=== PATIENT | female | born 1970 | race American Indian/Alaskan Native ===

== ENCOUNTER 2021-01-20 07:32 | Day surgery (SDC) | payer BC ==
[2021-01-18 13:31] LABS: Hematocrit 37.5 % (30.3-42.9); Hemoglobin 12.3 gm/dl (10.1-14.3); Mean Corpuscular HGB Conc 33 % (30-34); Mean Corpuscular Volume 96 fl (79-97)
[2021-01-18 13:42] LABS: Blood Urea Nitrogen 12 mg/dL (7-17); Calcium 9.6 mg/dL (8.4-10.2); Hemolysis Index 71
[2021-01-18 13:43] LABS: BUN/Creatinine Ratio 24
[2021-01-18 14:57] LABS: Platelet Count 316 K/mm3 (140-440)
[2021-01-20] MEDS ORDERED: LACTATED RINGERS 1,000 ML IV SCH (08:00)
[2021-01-20] MEDS ORDERED: ceFAZolin/STERILE WATER 2 GM/20 ML SYRINGE IV NR (08:00)
[2021-01-20] MEDS ORDERED: MIDAZOLAM 2 MG/2 ML INJ IV NR (08:23)
[2021-01-20] MEDS ORDERED: HYDROmorphone 1 MG/1 ML INJ IV PRN ×2 (08:24)
[2021-01-20] MEDS ORDERED: ONDANSETRON 4 MG/2 ML INJ IV PRN (08:24)
--- NOTE | 2021-01-20 08:25 | Anesthesia Day of Surgery ---
Anesthesia Day of Surgery - Day of Surgery Patient Examined: Yes Patient H&P Reviewed: Yes Patient is NPO: Yes
--- NOTE | 2021-01-20 08:26 | Anesthesia Consultation ---
Anesthesia Consult and Med Hx Date of service: 01/20/21 - Airway Anesthetic Teeth Evaluation: Caps ROM Head & Neck: Adequate Mental/Hyoid Distance: Adequate Mallampati Class: Class II Intubation Access Assessment: Good - Pre-Operative Health Status ASA Pre-Surgery Classification: ASA2 Proposed Anesthetic Plan: General - Pulmonary Hx Asthma: Yes (As a child) Hx Respiratory Symptoms: No (+2FS) - Cardiovascular System Hx Hypertension: No - Central Nervous System Hx Psychiatric Problems: No - Gastrointestinal Hx Gastroesophageal Reflux Disease: No - Endocrine Hx Renal Disease: Yes (Stones) - Hematic Hx Sickle Cell Disease: No - Other Systems Hx Alcohol Use: Yes (Occas) Hx Cancer: No Hx Obesity: Yes - Additional Comments Anesthesia Medical History Comments: Has symptomatic uterine fibroids
[2021-01-20] MEDS ORDERED: fentaNYL 100 MCG/2 ML INJ ONE (09:00)
[2021-01-20] MEDS ORDERED: LIDOCAINE MPF (2%) 20 MG/1 ML VIAL 5 ML ONE (09:00)
[2021-01-20] MEDS ORDERED: propofoL 200 MG/20 ML VIAL IV ONE (09:00)
[2021-01-20] MEDS ORDERED: WATER FOR IRRIG STERILE 2000 ML IR ONE (09:27)
[2021-01-20] MEDS ORDERED: WATER FOR IRRIG STERILE 1,000 ML BOTTLE IR ONE (09:34)
--- NOTE | 2021-01-20 10:07 | Short Stay Summary ---
Short Stay Documentation Date of service: 01/20/21 - History H&P: obtained from office - Allergies and Medications Current Medications: Allergies No Known Allergies Allergy (Unverified 01/17/21 17:31) Home Medications Medication Instructions Recorded Confirmed Last Taken Type Acetaminophen/Codeine [Tylenol 1 tab PO Q6H PRN 01/17/21 01/17/21 Unknown History /Codeine # 3 tab] Ibuprofen [Motrin] 800 mg PO Q8HR PRN 01/17/21 01/17/21 01/19/21 History Zolpidem Tartrate 10 mg PO HS 01/17/21 01/17/21 01/19/21 History Active Medications Cefazolin Sodium (Cefazolin/Sterile Water 2 Gm/20 Ml Syringe) 2 gm IV PREOP NR Stop: 01/20/21 20:00 Hydromorphone HCl (Hydromorphone 1 Mg/1 Ml Inj) 0.25 mg IV Q10MIN PRN PRN Reason: Pain, Moderate (4-6) Stop: 01/20/21 23:00 Hydromorphone HCl (Hydromorphone 1 Mg/1 Ml Inj) 0.5 mg IV Q10MIN PRN PRN Reason: Pain , Severe (7-10) Stop: 01/20/21 23:59 Lactated Ringer's (Lactated Ringers) 1,000 mls @ 100 mls/hr IV DIRECT MITA Last Admin: 01/20/21 08:45 Dose: 100 mls/hr Documented by: Midazolam HCl (Midazolam 2 Mg/2 Ml Inj) 2 mg IV ONCE NR Stop: 01/20/21 12:00 Last Admin: 01/20/21 08:47 Dose: 2 mg Documented by: Ondansetron HCl (Ondansetron 4 Mg/2 Ml Inj) 4 mg IV ONCE PRN PRN Reason: Nausea And Vomiting Stop: 01/20/21 20:00 - Brief post op/procedure progress note Date of procedure: 01/20/21 Pre-op diagnosis: rt renal stone Post-op diagnosis: same Procedure: cysto, rt stent, ESWL Anesthesia: CHANTE Surgeon: ROSITA DEWEY Estimated blood loss: none Pathology: none Condition: stable - Hospital course Hospital course: macrobid, norco, post op info on chart - Disposition Condition at discharge: Stable Disposition: DC-01 TO HOME OR SELFCARE Short Stay Discharge Plan Follow up with: SHONNA WARD MD [Primary Care Provider] - 7 Days
[2021-01-20] MEDS ORDERED: HYDROmorphone 1 MG/1 ML INJ ONE (10:25)
[2021-01-20] MEDS ORDERED: KETOROLAC 30 MG/1 ML INJ ONE (10:25)
[2021-01-20] MEDS ORDERED: ONDANSETRON 4 MG/2 ML INJ ONE (10:26)
[2021-01-20] MEDS ORDERED: KETOROLAC 30 MG/1 ML INJ IV PRN (11:00)
--- NOTE | 2021-01-20 11:06 | Operative Report ---
DATE OF SURGERY: 01/20/2021 PREOPERATIVE DIAGNOSIS: Right ureteral stone, 1 cm. POSTOPERATIVE DIAGNOSIS: Right ureteral stone, 1 cm. PROCEDURE PERFORMED: Cystoscopy, right double-J stent (6-Kyrgyz 24 cm with a short internal string), right extracorporal shockwave lithotripsy. SURGEON: Didier Thrasher MD ANESTHESIA: General. ESTIMATED BLOOD LOSS: Minimal. FLUIDS: Crystalloid. COMPLICATIONS: No complications. INDICATIONS: This patient is a 50-year-old female seen in the office with right flank pain. CT abdomen and pelvis revealed a 1 cm stone. Discussed options and the patient agreed to proceed with surgical intervention. She is also undergoing a hysterectomy in the near future. DESCRIPTION OF PROCEDURE: The patient was taken to the operative suite, placed in a supine position. After adequate general anesthesia, placed in a dorsal lithotomy position, prepped and draped in a sterile fashion. Pancystourethroscopy was performed with a 22-Kyrgyz Storz cystoscope. No bladder pathology. A 0.035 Glidewire was placed. A 6-Kyrgyz 24 cm stent with a short internal string was placed without difficulty. The patient was then placed in a supine position. His right renal stone was localized in 2 planes using fluoroscopy. Extracorporal shock wave lithotripsy was administered with a maximum kV of 8 and 2500 shocks. 5-minute renal pause after 200 shocks was performed without difficulty. There was some fragmentation of the stone. She was extubated and taken to recovery room. She will go home on Macrobid and [place]. TID: [id number] RECEIPT: [id number] SARAI/YUDELKA
[2021-01-20 11:31] VITALS: BP 134/68
--- NOTE | 2021-01-20 17:16 | Post Anesthesia Evaluation ---
- Post Anesthesia Evaluation Patient Participated: Yes Airway Patent: Yes Stable Respiratory Function: Yes Nausea/Vomiting: No Temp > 96.8F: Yes Pain Manageable: Yes Adequeate Hydration: Yes Anesthesia Complications: No Block Receding Appropriately: Not Applicable Patient on Ventilator: No
== END 2021-01-20 11:30 | disposition home or self-care (01) ==
LOC: OR 07:32
PROVIDERS: ATTEND Urology
DX: N20.1 Calculus of ureter (principal); J45.909 Unspecified asthma, uncomplicated; E66.9 Obesity, unspecified; Z20.822 Contact with and (suspected) exposure to COVID-19; M19.90 Unspecified osteoarthritis, unspecified site; Z72.89 Other problems related to lifestyle; Z79.899 Other long term (current) drug therapy; Z98.891 History of uterine scar from previous surgery; Z98.890 Other specified postprocedural states; Z68.41 Body mass index [BMI] 40.0-44.9, adult
CPT/HCPCS: 36415; 50590; 52332; 80048; 85027; A4217; C1758; C2617; J0690; J1170; J1885; J2250; J2405; J2704; J3010; J7120; U0003

== ENCOUNTER 2021-03-31 10:54 | Day surgery (SDC) | payer BC ==
[2021-03-31] MEDS ORDERED: MORPHINE 2 MG/1 ML INJ IV ONE (12:38)
[2021-03-31] MEDS ORDERED: MORPHINE 2 MG/1 ML INJ ONE (12:40)
[2021-03-31] MEDS ORDERED: SODIUM CHLORIDE 0.9% 500 ML 500 ML IV SCH (13:00)
--- NOTE | 2021-03-31 13:19 | Cat Scan Report ---
CT ABDOMEN AND PELVIS WITHOUT CONTRAST INDICATION / CLINICAL INFORMATION: nephrolithiasis/pain. TECHNIQUE: Axial CT images were obtained through the abdomen and pelvis without IV contrast. All CT scans at this location are performed using CT dose reduction for ALARA by means of automated exposure control. COMPARISON: None available. FINDINGS: LOWER CHEST: No significant abnormality LIVER: No significant abnormality GALLBLADDER/BILIARY TREE: No significant abnormality PANCREAS: No significant abnormality SPLEEN: No significant abnormality ADRENALS: No significant abnormality KIDNEYS / URETER/ BLADDER: Right ureteral stent is appropriately positioned. Calcifications are seen along the distal aspect of the stent in the bladder. Additional 5 mm bladder stone is present adjacen t to the stent. 1.3 cm stone is present within the right renal pelvis with 3 additional tiny stones i n the lower pole right renal calyx. There is urothelial thickening of the right renal collecting syst em. No significant right hydronephrosis. Left kidney and ureter are unremarkable. No bladder wall thi ckening or perivesicular stranding. UTERUS: Uterus is atrophic or absent. No suspicious adnexal mass. STOMACH / BOWEL: No significant abnormality. The appendix is normal in caliber. LYMPH NODES: No significant adenopathy. VASCULATURE: No significant abnormality. OTHER: No free air, free fluid, or focal fluid collection is identified. SKELETAL SYSTEM: No acute osseous findings. Marked asymmetric right hip osteoarthritis. Mild scattere d degenerative changes of the spine. IMPRESSION: 1. Right nephrolithiasis, to include 1.3 cm renal pelvis stone. Satisfactory position of right ureter al stent with calcification along the distal stent in the bladder with adjacent 5 mm bladder stone. A symmetric urothelial thickening of the right renal collecting system/ureter without significant hydro nephrosis, which may be related to presence of stent, though recommend clinical correlation to exclud e infection. 2. Otherwise, no acute abnormality of the abdomen or pelvis. 3. Other chronic and incidental findings as above. Signer Name: Dougie Tenorio MD Signed: 03/31/2021 1:15 PM Workstation Name: [id number]
[2021-03-31] MEDS ORDERED: fentaNYL 100 MCG/2 ML INJ ONE (15:02)
[2021-03-31] MEDS ORDERED: MIDAZOLAM 2 MG/2 ML INJ ONE ×2 (15:02→16:06)
[2021-03-31] MEDS ORDERED: SODIUM CHLORIDE IRRI 500 ML 500 ML IR ONE (15:03)
[2021-03-31] MEDS ORDERED: LIDOCAINE (2%) 20 MG/1 ML VIAL 20 ML MDV INFILTRATI ONE (15:03)
--- NOTE | 2021-03-31 16:19 | Short Stay Summary ---
Short Stay Documentation Date of service: 03/31/21 - History Principal diagnosis: Right nephrolithiasis Past Medical History: other (Right nephrolithiasis) Past Surgical History: Other (Percutaneous lithotripsy, placement of a right ureteral stent) Social history: no significant social history - Allergies and Medications Current Medications: Allergies No Known Allergies Allergy (Verified 03/21/21 09:48) Home Medications Medication Instructions Recorded Confirmed Last Taken Type HYDROmorphone [Dilaudid] 2 mg PO Q4HR 03/23/21 03/31/21 03/29/21 History 2 mg Active Medications Sodium Chloride (Nacl 0.9% 500 Ml) 500 mls @ 50 mls/hr IV DIRECT MITA Last Admin: 03/31/21 13:24 Dose: 50 mls/hr Documented by: - Physical exam General appearance: no acute distress Integumentary: no rash HEENT: Atraumatic Lungs: Normal air movement Breasts: deferred Gastrointestinal: normal Female Genitourinary: deferred Rectal Exam: deferred Neurological: Normal speech, Normal tone - Brief post op/procedure progress note Date of procedure: 03/31/21 Pre-op diagnosis: Right nephrolithiasis Post-op diagnosis: same Procedure: Ultrasound and fluoroscopic guided placement of a right nephroureteral tube for planned laser lithotripsy Anesthesia: local Surgeon: BECKA ROBB Estimated blood loss: minimal Pathology: none Condition: stable - Disposition Condition at discharge: Good Disposition: 01 HOME / SELF CARE / HOMELESS Short Stay Discharge Plan Activity: advance as tolerated Weight Bearing Status: Weight Bear as Tolerated Diet: regular Wound: keep clean and dry, per your surgeon's advice (Keep dressing intact until surgery with Dr. Thrasher) Follow up with: SHONNA WARD MD [Primary Care Provider] - 7 Days
[2021-03-31 17:17] VITALS: BP 130/78
--- NOTE | 2021-04-06 15:45 | Operative Report ---
Operative Report Operative Report: Exam: Ultrasound and fluoroscopic guided placement of nephroureteral stent Clinical indication: Patient with right nephrolithiasis requiring stent placement for percutaneous access for laser lithotripsy Date: 03/31/2021 Procedure: Following an explanation of the risks, benefits and alternatives; written informed consent was obtained. The patient was brought to the angiographic suite and placed in prone position on the examination table. Initial ultrasound evaluation of the back demonstrated mild right hydronephrosis. The patient's right back and flank were prepped and draped in the usual sterile fashion. 1% lidocaine was used for anesthesia. Under ultrasound guidance, a 15 cm 21-gauge needle was advanced into a posterior middle calyx. A 0.018 guidewire was advanced through the needle into the proximal ureter. The needle was removed and the inner portion of an AccuStick transition dilator placed over the guidewire and advanced centrally. The trocar and guidewire were removed and contrast injected to document appropriate positioning. The guidewire was reinserted and the AccuStick transition dilator reassembled and advanced over the guidewire. The trocar and 018 guidewire were removed and a 0.035 guidewire advanced through the transition dilator to the bladder. The transition dilator was removed and a 5 Barbadian vertebral catheter advanced over the guidewire to the bladder. Contrast was injected which demonstrates appropriate positioning within the bladder. The vertebral catheter was exchanged over a guidewire for a pigtail catheter which was advanced and positioned with the pigtail in the bladder. The catheter was securely fastened to the skin surface using 2-0 Ethilon suture and a sterile dressing applied. The patient tolerated the procedure well. There were no immediate postprocedural complications. Conscious sedation was performed under the guidance of radiologic nursing. Continuous cardiopulmonary monitoring was utilized. Impression: Ultrasound and fluoroscopic placement of nephroureteral stent.
== END 2021-03-31 17:40 | disposition home or self-care (01) ==
LOC: CATHLABREC 10:54
PROVIDERS: ATTEND Radiology Diagnostic Radiology
DX: N20.0 Calculus of kidney (principal); M16.11 Unilateral primary osteoarthritis, right hip; J45.909 Unspecified asthma, uncomplicated; E66.9 Obesity, unspecified; M19.90 Unspecified osteoarthritis, unspecified site; Z79.899 Other long term (current) drug therapy; Z98.890 Other specified postprocedural states
CPT/HCPCS: 50433; 74176; C1769; J1956; J2250; J2270; J3010; J7040

== ENCOUNTER 2021-04-04 06:22 | Observation (INO) | payer BC ==
[2021-03-23 11:48] LABS: Hematocrit 37.8 % (30.3-42.9); Hemoglobin 12.6 gm/dl (10.1-14.3); Mean Corpuscular HGB Conc 33 % (30-34); Mean Corpuscular Volume 94 fl (79-97); Platelet Count 355 K/mm3 (140-440); Red Blood Count 4.03 M/mm3 (3.65-5.03); Red Cell Distribution Width 13.9 % (13.2-15.2)
[2021-03-23 12:14] LABS: INR 0.96 (0.87-1.13)
[2021-03-23 12:15] LABS: Partial Thromboplastin Time 27.1 Sec. (24.2-36.6)
[2021-03-23 12:20] LABS: Alanine Aminotransferase 25 units/L (7-56); Albumin 4.1 g/dL (3.9-5); Blood Urea Nitrogen 10 mg/dL (7-17); Calcium 9.5 mg/dL (8.4-10.2); Hemolysis Index 17
[2021-03-23 12:35] LABS: BUN/Creatinine Ratio 17
--- NOTE | 2021-03-23 14:20 | Anesthesia Consultation ---
Anesthesia Consult and Med Hx Date of service: 04/04/21 - Airway Anesthetic Teeth Evaluation: Good ROM Head & Neck: Adequate Mental/Hyoid Distance: Adequate Mallampati Class: Class III Intubation Access Assessment: Possibly Difficult - Pulmonary Exam CTA: Yes - Cardiac Exam Cardiac Exam: RRR - Pre-Operative Health Status ASA Pre-Surgery Classification: ASA3 Proposed Anesthetic Plan: General - Pulmonary Hx Smoking: No Hx Asthma: Yes (childhood asthma; no recent inhaler use) Hx Respiratory Symptoms: No Hx Sleep Apnea: No (JANI PRE SCREEN LOW RISK) - Cardiovascular System Hx Hypertension: No Hx Heart Attack/AMI: No (>4 mets functional capacity) Hx Percutaneous Transluminal Coronary Angioplasty (PTCA): No - Central Nervous System CVA: No - Endocrine Hx Renal Disease: No Hx Liver Disease: No Hx Insulin Dependent Diabetes: No Hx Non-Insulin Dependent Diabetes: No Hx Thyroid Disease: No - Other Systems Hx Obesity: Yes (BMI 43) - Additional Comments Anesthesia Medical History Comments: Hx PONV for which scop patch worked well. Currently taking PO dilaudid for pain associated with renal stones.
[~2021-04-04 06:22] MED LIST: ACETAMINOPHEN 500 MG TAB PO SCH; GABAPENTIN 300 MG CAP PO NR; MIDAZOLAM 2 MG/2 ML INJ IV NR; SCOPOLAMINE TRANSDERMAL PATCH 72 HR TD NR
[2021-04-04] MEDS ORDERED: BACTERIOSTATIC SODIUM CHLORIDE 0.9% 30 ML VIAL INFILTRATI ONE (06:27)
[2021-04-04] MEDS ORDERED: HYDROmorphone 1 MG/1 ML INJ IV NR (06:57)
--- NOTE | 2021-04-04 06:57 | Anesthesia Day of Surgery ---
Anesthesia Day of Surgery - Day of Surgery Patient Examined: Yes Patient H&P Reviewed: Yes Patient is NPO: Yes
[2021-04-04] MEDS: LACTATED RINGERS 1,000 ML IV SCH ×2 (07:15→16:43)
[2021-04-04] MEDS ORDERED: propofoL 200 MG/20 ML VIAL IV ONE (07:17)
[2021-04-04] MEDS ORDERED: ONDANSETRON 4 MG/2 ML INJ IV PRN ×2 (07:19→12:00)
[2021-04-04] MEDS ORDERED: ROCURONIUM 50 MG/5 ML INJ IV ONE (07:19)
[2021-04-04] MEDS ORDERED: LIDOCAINE MPF (2%) 20 MG/1 ML VIAL 5 ML ONE (07:20)
[2021-04-04] MEDS ORDERED: ceFAZolin/Water 2 GM/20 ML 2 GM/20 ML SYRINGE IV ONE (07:32)
[2021-04-04] MEDS ORDERED: MINERAL OIL Light (Sterile) 10 ML VIAL TP ONE ×2 (07:54→09:55)
[2021-04-04] MEDS ORDERED: ceFAZolin/STERILE WATER 2 GM/20 ML SYRINGE IV NR (08:00)
[2021-04-04] MEDS ORDERED: dexAMETHasone 20 MG/5 ML VIAL ONE (08:33)
[2021-04-04] MEDS ORDERED: ONDANSETRON 4 MG/2 ML INJ ONE (08:35)
[2021-04-04] MEDS ORDERED: SODIUM CHLORIDE 0.9% IRRIG SOLN 2000 ML IR ONE (10:00)
[2021-04-04] MEDS ORDERED: NEOSTIGMINE 10MG/10 ML INJ MDV ONE (11:24)
[2021-04-04] MEDS ORDERED: GLYCOPYRROLATE 0.4 MG/2 ML INJ ONE (11:24)
--- NOTE | 2021-04-04 11:32 | Post Operative Note ---
Date of procedure: 04/04/21 Pre-op diagnosis: rt renal stone Post-op diagnosis: other (bladder stone) Procedure: rt percuteanous nephrolithotoy (pt still has perc tube), exchange jj stent (short internal string), cysto laser bladder & kidney stone Anesthesia: CHANTE Surgeon: ROSITA DEWEY Pathology: list (stone with me) Condition: stable Disposition: PACU (norco & bactrimon chart / perc tube plugged)
[2021-04-04] MEDS: HYDROmorphone 1 MG/1 ML INJ IV PRN ×3 (11:59→12:35)
[2021-04-04] MEDS ORDERED: ACETAMINOPHEN 325 MG TAB PO PRN (12:00)
[2021-04-04] MEDS ORDERED: NALOXONE 0.4 MG/1 ML INJ IV PRN (12:00)
--- NOTE | 2021-04-04 13:43 | Operative Report ---
DATE OF SURGERY: 04/04/2021 PREOPERATIVE DIAGNOSIS: Right renal stone, status post lithotripsy. POSTOPERATIVE DIAGNOSES: Right renal stone, status post lithotripsy; bladder stone. PROCEDURES PERFORMED: Right percutaneous nephrolithotomy, double-J stent exchange (6-Pakistani 24 cm with a short internal string), cystoscopy, holmium laser of bladder stone and nephrostogram. SURGEON: Didier Thrasher MD ANESTHESIA: General. ESTIMATED BLOOD LOSS: Minimal. FLUIDS: Crystalloid. COMPLICATIONS: No complications. INDICATIONS: This is a 51-year-old female who was seen in the office initially for hematuria. CT of abdomen and pelvis revealed a 15 mm stone. She underwent a lithotripsy with some improvement of her stone and she had a stent placed. We discussed options. The patient wanted to be more aggressive and proceed with percutaneous nephrolithotomy of this 8-10 mm stone. She had a right nephrostomy tube placed. She presents for a surgical intervention. DESCRIPTION OF PROCEDURE: The patient was taken to the operative suite, placed in the supine position. After adequate general anesthesia, she was then placed in a prone position, prepped and draped in a sterile fashion. Using the Amplatz system, 0.035 Glidewire was placed over it, then snaked followed by dilation of the tract with Amplatz system up to 28-Pakistani. Rigid nephroscope was performed. I was able to see a yellow stone; it was in the renal pelvis, 10 mm. Using a 500 micron holmium laser, laser lithotripsy of the stone was performed without difficulty. The patient had an indwelling stent. The stent was damaged during and therefore attempts to pull the stent out and exchange, the stent broke. Fluoroscopy revealed a retained stent in the bladder only. A 6-Pakistani 24 cm double-J new stent was placed under fluoroscopic guidance. Nephrostogram revealed good placement of the stent on fluoroscopy. An 18-Pakistani algaaciq tip catheter was then advanced over the wire and tied into position at the skin with a 2-0 silk. Nephrostogram again confirmed the percutaneous tube in excellent position. Attention was taken down to the bladder and the percutaneous tube was plugged. Attention was taken to the bladder, I was able to do a flexible scope with the patient in prone position; however, at that point, I realized there was a stone around the stent, that would not be able to pull it out. She was then rolled into a supine position and then prepped and draped and placed in a dorsal lithotomy position. At that point, a 22-Pakistani rigid cystoscope was used, same 500 micron holmium laser was able to break up the stone around the stent, pulled out the retained lower moiety of the stent, irrigated some of the fragments out. The rest should be able to pass without difficulty. Perez catheter was placed. The stent was in good position. Perez in good position. She was extubated and taken to recovery room. She will be observed overnight and will go home tomorrow. She will go home on Dilaudid and Bactrim. TID: [id number] RECEIPT: [id number] SARAI/LANE/VIS
--- NOTE | 2021-04-04 14:31 | Post Anesthesia Evaluation ---
- Post Anesthesia Evaluation Patient Participated: Yes Airway Patent: Yes Stable Respiratory Function: Yes Nausea/Vomiting: No Temp > 96.8F: Yes Pain Manageable: Yes Adequeate Hydration: Yes Anesthesia Complications: No
--- NOTE | 2021-04-04 15:38 | Fluoroscopy Report ---
FLUOROSCOPY NEPHROSTOGRAM EXISTING RIGHT HISTORY: Right kidney stone COMPARISON: 03/31/2021 FINDINGS: 2 minutes and 13 seconds of fluoroscopy time was provided by radiology during percutaneous nephrostogram by urology. 5 fluoroscopic images are presented. A right ureteral stent and right nephr ostomy tube are in position. An approximate 1 cm stone is identified in the left renal pelvis. A radha ium laser was used on the right renal pelvis stone and bladder stone per the operative notes. The rig ht ureteral stent was exchanged. Please correlate with the procedural notes as needed. Signer Name: Hugh Cruz Jr, MD Signed: 04/04/2021 3:34 PM Workstation Name: [id number]
[2021-04-04] MEDS: MORPHINE 4 MG/1 ML INJ IV PRN ×2 (16:39→20:45)
[2021-04-04] MEDS: ceFAZolin/NS 1 GM/50 ML 1 GM/50 ML BAG IV SCH (17:13)
[2021-04-04] MEDS: oxyCODONE /ACETAMINOPHEN 5-325MG TAB PO PRN (19:15)
[2021-04-05] MEDS: ceFAZolin/NS 1 GM/50 ML 1 GM/50 ML BAG IV SCH ×2 (00:12→00:20)
[2021-04-05] MEDS: MORPHINE 4 MG/1 ML INJ IV PRN ×3 (00:20→08:14)
[2021-04-05 08:34] VITALS: BP 106/58
[2021-04-05] MEDS: oxyCODONE /ACETAMINOPHEN 5-325MG TAB PO PRN (11:35)
--- NOTE | 2021-04-05 13:50 | Fluoroscopy Report ---
FLUOROSCOPY NEPHROSTOGRAM EXISTING RIGHT HISTORY: Status post percutaneous nephrolithotomy COMPARISON: 04/04/2021 IMPRESSION: Sterile technique was utilized. Approximately 30-40 cc of Omnipaque 300 contrast agent wa s injected through an existing right nephrostomy tube. The images demonstrate prompt extravasation of the contrast from the renal collecting system near the right renal pelvis or right UPJ. This appears similar to the images obtained yesterday by urology. There is partial opacification of the renal jovanni yces. A small amount of contrast does outline the ureter and enters the bladder. No obvious obstructi ng lesion is seen in the right ureter. Right ureteral stent is in position. Fluoroscopic time: 1.2 minutes Fluoroscopic images: 49 Signer Name: Hugh Cruz Jr, MD Signed: 04/05/2021 1:46 PM Workstation Name: [id number]
--- NOTE | 2021-04-05 17:49 | Short Stay Summary ---
Short Stay Documentation Date of service: 04/05/21 - History H&P: obtained from office - Allergies and Medications Current Medications: Allergies No Known Allergies Allergy (Verified 03/21/21 09:48) Home Medications Medication Instructions Recorded Confirmed Last Taken Type HYDROmorphone [Dilaudid] 2 mg PO Q4HR 03/23/21 04/04/21 04/03/21 History Active Medications Acetaminophen (Acetaminophen 500 Mg Tab) 1,000 mg PO PREOP MITA Last Admin: 04/04/21 06:55 Dose: 1,000 mg Documented by: Acetaminophen (Acetaminophen 325 Mg Tab) 650 mg PO Q4H PRN PRN Reason: Pain MILD(1-3)/Fever >100.5/HOUGH Bisacodyl (Bisacodyl 10 Mg Rect Supp) 10 mg HI QDAY PRN PRN Reason: Constipation unrelieved by MOM Morphine Sulfate (Morphine 4 Mg/1 Ml Inj) 4 mg IV Q4H PRN PRN Reason: Pain , Severe (7-10) Last Admin: 04/05/21 08:14 Dose: 4 mg Documented by: Naloxone HCl (Naloxone 0.4 Mg/1 Ml Inj) 0.1 mg IV Q2MIN PRN PRN Reason: Res Rate </= 8 or 02 SAT < 92% Ondansetron HCl (Ondansetron 4 Mg/2 Ml Inj) 4 mg IV Q8H PRN PRN Reason: N/V unrelieved by Reglan Last Admin: 04/04/21 19:15 Dose: 4 mg Documented by: Oxycodone/Acetaminophen (Oxycodone /Acetaminophen 5-325mg Tab) 1 tab PO Q6H PRN PRN Reason: Pain, Moderate (4-6) Last Admin: 04/05/21 11:35 Dose: 1 tab Documented by: Scopolamine (Scopolamine Transdermal Patch 72 Hr) 1 each TD PREOP NR Stop: 05/05/21 23:00 Last Admin: 04/04/21 07:00 Dose: 1 each Documented by: - Brief post op/procedure progress note Date of procedure: 04/04/21 Pre-op diagnosis: rt renal stone Post-op diagnosis: same Procedure: perc rt Anesthesia: GETA Surgeon: ROSITA DEWEY Estimated blood loss: minimal Condition: stable - Hospital course Hospital course: dilaudid & bactrim on chart post op nephrostogram--- no rt stone, mild extrav dc perc tube dc home jarvis stent 2 weeks - Disposition Condition at discharge: Stable Short Stay Discharge Plan Follow up with: SHONNA WARD MD [Primary Care Provider] - 7 Days
--- NOTE | 2021-04-07 08:52 | Electrocardiograph Report ---
[facility] Test Date: 2021-04-04 Test Time: 15:39:34 Pat Name: CATHIE LUNA Department: Room: A484 1 Gender: F [employer]: TERESO : 1970 Requested By: ROSITA DEWEY Order Number: [id number] Reading MD: Nilo Vega Measurements Intervals [place] Rate: 89 P: 48 ID: [id number] QRS: 81 QRSD: 79 T: 11 QT: 397 QTc: 484 Interpretive Statements Sinus rhythm Probable left atrial enlargement Anteroseptal infarct, age indeterminate No previous ECG available for comparison Electronically Signed On 04-07-2021 8:51:28 EDT by Nilo Vega
== END 2021-04-05 19:10 | disposition home or self-care (01) ==
LOC: OR 06:22 → OBSVTOIN 11:33 → 4A 11:33 → INTOOBSV 11:33 → 4A 13:29
PROVIDERS: ADMIT Urology; ATTEND Urology
DX: N20.0 Calculus of kidney (principal); Z20.822 Contact with and (suspected) exposure to COVID-19; E66.9 Obesity, unspecified; M19.90 Unspecified osteoarthritis, unspecified site; Z87.440 Personal history of urinary (tract) infections; Z87.442 Personal history of urinary calculi; Z98.891 History of uterine scar from previous surgery; Z68.41 Body mass index [BMI] 40.0-44.9, adult
CPT/HCPCS: 36415; 50081; 50431; 80053; 85027; 85610; 85730; 86850; 86900; 86901; 93005; 96365; 96366; 96375; 96376; A4217; C1769; C2617; G0378; J0690; J1100; J1170; J2250; J2270; J2405; J2704; J2710; J7120; Q9967; U0003